=== PATIENT | female | born 1940 | race African-American/Black ===

== ENCOUNTER 2018-11-28 14:11 | Outpatient (CLI) | payer MEDICARE, BC ==
--- NOTE | 2018-11-28 14:56 | ULT ---
RENAL ULTRASOUND: INDICATIONS: Chronic kidney disease. FINDINGS: The left kidney measures 10.2 cm in length. The right kidney measures 10.0 cm. There is no hydronep hrosis. Mild cortical thinning bilaterally. Mild increased cortical echogenicity. The bladder is mildly distended. There is evidence of mild bladder wall thickening. IMPRESSION: 1. Bilateral cortical thinning and mild bilateral increased cortical echogenicity. 2. Evidence of mild bladder wall thickening, although the bladder is suboptimally distended. POS: [facility]
== END 2018-11-28 14:12 | disposition home or self-care (01) ==
LOC: BICULT 14:11
PROVIDERS: ATTEND Internal Medicine Nephrology
DX: I12.9 Hypertensive chronic kidney disease with stage 1 through stage 4 chronic kidney disease, or unspecified chronic kidney disease (principal); N18.3 Chronic kidney disease, stage 3 (moderate); N32.89 Other specified disorders of bladder; N28.89 Other specified disorders of kidney and ureter
CPT/HCPCS: 76770

== ENCOUNTER 2023-07-11 12:02 | Inpatient (IN) | payer MEDICARE ==
[2023-07-11 12:54] LABS: #Neutrophils 5.9 thou/uL (1.40-6.50); %Basophils 0.2 % (0.0-1.0); %Eosinophils 0.4 % (0.0-10.0); %Monocytes 9.9 % (0.0-10.0); Hematocrit 35.2 % (36.0-47.0); Hemoglobin 11.7 g/dL (12.0-16.0); Mean Corpuscular HGB CONC 33.2 g/dL (32.0-36.0); Mean Corpuscular Hemoglobin 26.9 pg (27.0-31.0); Mean Corpuscular Volume 80.9 fl (78.0-98.0); Mean Platelet Volume 11.4 fL (7.4-10.4); Platelet Count 171 10x3/uL (130-400); RBC Distribution Width 13.7 % (11.5-14.5); Red Blood Cell (RBC) Count 4.35 mill/uL (4.20-5.40); White Blood Cell (WBC) Count 9.6 10x3/uL (4.8-10.8)
[2023-07-11 13:23] LABS: Troponin I Less than 0.010 ng/mL (< 0.028)
[2023-07-11 13:25] LABS: ALT (SGPT) 30 U/L (8-55); AST (SGOT) 51 U/L (5-34); Albumin 3.7 g/dL (3.4-4.8); Alkaline Phosphatase 140 U/L (40-110); Anion Gap 14 mmol/L (10-20); BUN (Urea Nitrogen) 18 mg/dL (9.8-20.1); Bilirubin, Total 0.7 mg/dL (0.2-1.2); Calc. Creatinine Clearance 0 mL/min (70-130); Calcium 8.6 mg/dL (7.8-10.44); Carbon Dioxide 25 mmol/L (23-31); Chloride 102 mmol/L (98-107); Estimated GFR 30; Globulin 3.8 g/dL (2.4-3.5); Glucose 144 mg/dL (83-110); Potassium 5.2 mmol/L (3.5-5.1); Protein, Total 7.5 g/dL (5.8-8.1); Sodium 136 mmol/L (136-145)
[2023-07-11] MEDS ORDERED: Acetaminophen 500 MG TAB ONE (14:10)
[2023-07-11] MEDS ORDERED: Ondansetron ODT 4 MG TAB PO PRN (16:00)
[2023-07-11] MEDS ORDERED: Ondansetron PF 4 MG/2 ML Vial IVP PRN (16:00)
[2023-07-11 19:14] VITALS: BMI 37.4
[2023-07-11] MEDS: Acetaminophen 325 MG TAB PO PRN (19:49)
[2023-07-11] MEDS ORDERED: Amlodipine 10 MG TAB PO SCH (21:15)
[2023-07-11] MEDS ORDERED: Fioricet 325/50/40 mg Tablet PO SCH (21:15)
[2023-07-12 04:39] LABS: #Monocytes 0.9 thou/uL (0.11-0.59); #Neutrophils 5.9 thou/uL (1.40-6.50); %Basophils 0.1 % (0.0-1.0); %Eosinophils 0.4 % (0.0-10.0); %Lymphocytes 18.2 % (21.0-51.0); %Monocytes 10.8 % (0.0-10.0); Hematocrit 36.3 % (36.0-47.0); Hemoglobin 11.8 g/dL (12.0-16.0); Mean Corpuscular HGB CONC 32.5 g/dL (32.0-36.0); Mean Corpuscular Hemoglobin 26.5 pg (27.0-31.0); Mean Corpuscular Volume 81.6 fl (78.0-98.0); Mean Platelet Volume 11.4 fL (7.4-10.4); Platelet Count 144 10x3/uL (130-400); RBC Distribution Width 13.8 % (11.5-14.5); Red Blood Cell (RBC) Count 4.45 mill/uL (4.20-5.40); White Blood Cell (WBC) Count 8.4 10x3/uL (4.8-10.8)
[2023-07-12 05:05] LABS: Anion Gap 14 mmol/L (10-20); BUN (Urea Nitrogen) 16 mg/dL (9.8-20.1); Calc. Creatinine Clearance 50 mL/min (70-130); Calcium 8.5 mg/dL (7.8-10.44); Carbon Dioxide 21 mmol/L (23-31); Chloride 105 mmol/L (98-107); Estimated GFR 37; Glucose 153 mg/dL (83-110); Potassium 3.7 mmol/L (3.5-5.1); Sodium 136 mmol/L (136-145)
[2023-07-12] MEDS ORDERED: Labetalol HCl 100 MG/20 ML VIAL SLOW IVP SCH (05:30)
[2023-07-12] MEDS ORDERED: Senokot S 8.6-50 MG TAB PO PRN (07:46)
[2023-07-12] MEDS: busPIRone HCl 10 MG TAB PO SCH ×2 (08:56→22:45)
[2023-07-12] MEDS: Losartan 25 MG TAB PO SCH (08:56)
[2023-07-12] MEDS: Aspirin 81 mg Enteric Coated Tablet PO SCH (08:56)
[2023-07-12] MEDS: Amlodipine 5 MG TAB PO SCH (08:56)
[2023-07-12] MEDS: DULoxetine 60 MG CAP PO SCH ×2 (08:57→22:44)
[2023-07-12] MEDS: CeleCOXIB 100 MG CAP PO SCH (08:57)
[2023-07-12] MEDS: Nortriptyline HCl 25 MG CAP PO SCH (08:57)
[2023-07-12] MEDS: Cholecalciferol 1,000 UNITS (25 MCG) TAB PO SCH (08:57)
[2023-07-12] MEDS ORDERED: Dextrose 5% in Water 1,000 ML IV PRN (10:05)
[2023-07-12] MEDS ORDERED: Dextrose 50% Abboject 50 ML SYRINGE SLOW IVP PRN (10:05)
[2023-07-12] MEDS ORDERED: Glucagon 1 MG/ML KIT IM PRN (10:05)
[2023-07-12] MEDS: ALPRAZolam 0.5 MG TAB PO PRN ×2 (10:06→22:45)
[2023-07-12] MEDS: HumaLOG 300 UNITS/3 ML VIAL SC PRN ×2 (12:09→16:50)
[2023-07-12 13:48] LABS: SARS-CoV-2 NAA Rapid Test Not Detected (NotDetected)
[2023-07-12 14:11] LABS: Troponin I Less than 0.010 ng/mL (< 0.028)
[2023-07-12] MEDS ORDERED: Oseltamivir 75 MG CAP PO SCH (15:00)
[2023-07-12] MEDS: Acetaminophen 325 MG TAB PO PRN ×2 (15:55→22:45)
[2023-07-12] MEDS ORDERED: Rosuvastatin 5 MG TAB PO SCH (21:00)
[2023-07-12] MEDS: Oseltamivir 6 MG/ML ORAL SUSP PO SCH (22:44)
[2023-07-13 04:37] LABS: #Eosinphils 0.1 thou/uL (0.0-0.7); #Monocytes 0.6 thou/uL (0.11-0.59); #Neutrophils 2.8 thou/uL (1.40-6.50); %Basophils 0.3 % (0.0-1.0); %Eosinophils 1.5 % (0.0-10.0); %Lymphocytes 39.9 % (21.0-51.0); %Monocytes 10.5 % (0.0-10.0); %Neutrophils 47.5 % (42.0-75.0); Hemoglobin 11.5 g/dL (12.0-16.0); Mean Corpuscular HGB CONC 31.9 g/dL (32.0-36.0); Mean Corpuscular Hemoglobin 26.9 pg (27.0-31.0); Mean Corpuscular Volume 84.1 fl (78.0-98.0); Mean Platelet Volume 10.8 fL (7.4-10.4); Platelet Count 154 10x3/uL (130-400); RBC Distribution Width 14.1 % (11.5-14.5); Red Blood Cell (RBC) Count 4.28 mill/uL (4.20-5.40); White Blood Cell (WBC) Count 5.9 10x3/uL (4.8-10.8)
[2023-07-13 05:06] LABS: Anion Gap 14 mmol/L (10-20); BUN (Urea Nitrogen) 26 mg/dL (9.8-20.1); Calc. Creatinine Clearance 37 mL/min (70-130); Calcium 7.7 mg/dL (7.8-10.44); Carbon Dioxide 20 mmol/L (23-31); Chloride 102 mmol/L (98-107); Estimated GFR 25; Glucose 201 mg/dL (83-110); Potassium 3.6 mmol/L (3.5-5.1); Sodium 132 mmol/L (136-145)
[2023-07-13] MEDS: Acetaminophen 325 MG TAB PO PRN (10:56)
[2023-07-13] MEDS: ALPRAZolam 0.5 MG TAB PO PRN (10:56)
[2023-07-13] MEDS: Aspirin 81 mg Enteric Coated Tablet PO SCH (10:57)
[2023-07-13] MEDS: Amlodipine 5 MG TAB PO SCH (10:57)
[2023-07-13] MEDS: DULoxetine 60 MG CAP PO SCH (11:01)
[2023-07-13] MEDS: CeleCOXIB 100 MG CAP PO SCH (11:01)
[2023-07-13] MEDS: Nortriptyline HCl 25 MG CAP PO SCH (11:01)
[2023-07-13] MEDS: Losartan 25 MG TAB PO SCH (11:02)
[2023-07-13] MEDS: Oseltamivir 6 MG/ML ORAL SUSP PO SCH (11:02)
[2023-07-13] MEDS: busPIRone HCl 10 MG TAB PO SCH (11:02)
[2023-07-13] MEDS: Cholecalciferol 1,000 UNITS (25 MCG) TAB PO SCH (11:02)
[2023-07-13] MEDS: HumaLOG 300 UNITS/3 ML VIAL SC PRN ×3 (11:04→17:47)
[2023-07-13 16:55] VITALS: BP 134/65; TEMP 97.1
== END 2023-07-13 19:05 | disposition home or self-care (01) | DRG 194 ==
LOC: ERS 12:02 → SUATTDRO 12:02 → 2NO 16:00
PROVIDERS: ADMIT Internal Medicine; ATTEND Internal Medicine
DX: J10.1 Influenza due to other identified influenza virus with other respiratory manifestations (principal); Z68.41 Body mass index [BMI] 40.0-44.9, adult; E11.22 Type 2 diabetes mellitus with diabetic chronic kidney disease; I12.9 Hypertensive chronic kidney disease with stage 1 through stage 4 chronic kidney disease, or unspecified chronic kidney disease; N18.30 Chronic kidney disease, stage 3 unspecified; E78.5 Hyperlipidemia, unspecified; E66.9 Obesity, unspecified; F03.90 Unspecified dementia, unspecified severity, without behavioral disturbance, psychotic disturbance, mood disturbance, and anxiety; Z88.5 Allergy status to narcotic agent; Z91.018 Allergy to other foods; Z79.82 Long term (current) use of aspirin; Z79.899 Other long term (current) drug therapy; Z98.890 Other specified postprocedural states
CPT/HCPCS: 36415; 36416; 70450; 71045; 72125; 78451; 80048; 80053; 83880; 84484; 85025; 85379; 93005; A9540; J1815